=== PATIENT | female | born 1960 | race Caucasian/White ===

== ENCOUNTER 2016-09-16 20:16 | Emergency (ER) | payer OTHER ==
[~2016-09-16] VITALS: Ht 175.3 cm; Wt 70.3 kg
[~2016-09-16 20:16] MED LIST: ASPI81CH43 GT; CLOP75TA28; NORVASC PO; [UNRECOGNIZED DRUG - CODE] OR
[2016-09-16 20:45] VITALS: BP 199/119
[2016-09-16] MEDS ORDERED: cloNIDine HCL 0.1 MG TAB ONE (20:48)
[2016-09-16] MEDS ORDERED: cloNIDine HCL 0.1 MG TAB PO ONE (21:00)
[2016-09-16 21:25] LABS: Basophils # (auto) 0.1 uL; Basophils % (auto) 1.1 % (0.0-2.0); DEFINITIVE VIEW TRANSMISSION; Eosinophils # (auto) 0.4 uL; Lymphocytes # (auto) 2.8 uL; Mean Corpuscular Volume 72.1 fL (80.0-100.0); Monocytes % (auto) 11.3 % (0.0-12.0)
[2016-09-16 21:33] LABS: Eosinophils % (auto) 4.4 % (0.0-7.0); Hematocrit 39.2 % (36.0-46.0); Hemoglobin 12.5 g/dL (12.2-16.2); Lymphocytes % (auto) 32.8 % (10.0-50.0); Mean Platelet Volume 8.9 fL (7.4-10.4); Neutrophils # (auto) 4.3 uL; Neutrophils % (auto) 50.4 % (37.0-80.0); Nucleated Red Blood Cells % 2.8 %; Platelet Count (auto) 432 10^3/uL (140-450); White Blood Cell 8.5 10^3/uL (4.4-10.8)
[2016-09-16 21:38] LABS: Red Cell Distribution Width 20.2 % (11.6-16.0)
[2016-09-16 21:41] LABS: INR 0.93 (0.9-1.15); Partial Thromboplastin Time 25.2 sec (22.64-33.71); Prothrombin Time 9.6 sec (9.37-12.3)
[2016-09-16 21:48] LABS: Albumin 4.1 g/dL (3.4-5.0); BUN/Creatinine Ratio 18.1; Bilirubin, Total 0.3 mg/dL (0.2-1.0); Calcium 9.2 mg/dL (8.5-10.1); Magnesium 2.5 mg/dL (1.6-2.6); Total Protein 7.6 g/dL (6.4-8.2)
[2016-09-16 21:59] LABS: B-Type Natriuretic Peptide 797.9 pg/mL (0-100); Temperature: 23.5 C (20.0-25.0)
[2016-09-16 22:01] LABS: Anisocytosis Moderate; Platelet Estimate Adequate
[2016-09-16 22:02] LABS: Hypochromia Moderate; Large Platelets FEW; Ovalocytes MODERATE; Tear Drop Cells FEW
[2016-09-16] MEDS ORDERED: HYDROmorphone HCL 2 MG/ML VL IV ONE (23:30)
[2016-09-16] MEDS ORDERED: ONDANSETRON HCL 4 MG/2 ML VIAL IV ONE (23:30)
== END 2016-09-17 01:31 | disposition left against medical advice (07) ==
LOC: ER 20:24
DX: I11.0 Hypertensive heart disease with heart failure (principal); I50.9 Heart failure, unspecified; I25.810 Atherosclerosis of coronary artery bypass graft(s) without angina pectoris; I10 Essential (primary) hypertension; F41.9 Anxiety disorder, unspecified; E78.5 Hyperlipidemia, unspecified; I25.2 Old myocardial infarction; F17.210 Nicotine dependence, cigarettes, uncomplicated; Z88.2 Allergy status to sulfonamides; Z88.6 Allergy status to analgesic agent; Z88.1 Allergy status to other antibiotic agents; Z91.041 Radiographic dye allergy status; Z91.040 Latex allergy status; Z88.0 Allergy status to penicillin; Z91.013 Allergy to seafood; Z79.82 Long term (current) use of aspirin; Z90.710 Acquired absence of both cervix and uterus
CPT/HCPCS: 36415; 71010; 74176; 80053; 83735; 83880; 84443; 84484; 85025; 85610; 85730; 93005

== ENCOUNTER 2017-06-15 12:12 | Inpatient (IN) | payer OTHER, MEDICAID ==
[~2017-06-15] VITALS: Ht 162.6 cm; Wt 70.8 kg
[~2017-06-15 12:12] MED LIST changes: -ASPI81CH43 GT; +ASPI81CH43 PO; -[UNRECOGNIZED DRUG - CODE] OR
[2017-06-15] MEDS ORDERED: HYDROmorphone HCL 2 MG/ML VL IV ONE ×3 (13:30→18:30)
[2017-06-15] MEDS ORDERED: ONDANSETRON HCL 4 MG/2 ML VIAL IV ONE ×2 (13:30→16:00)
[2017-06-15 13:46] LABS: Basophils # (auto) 0.2 uL; Basophils % (auto) 2.5 % (0.0-2.0); Eosinophils # (auto) 0.3 uL; Eosinophils % (auto) 5.1 % (0.0-7.0); Hematocrit 43.2 % (36.0-46.0); Hemoglobin 14.5 g/dL (12.2-16.2); Lymphocytes # (auto) 1.5 uL; Lymphocytes % (auto) 22.8 % (10.0-50.0); Mean Corpuscular Hemoglobin 29.3 pg (28.0-32.0); Mean Corpuscular Hgb Conc. 33.5 g/dL (32.0-36.0); Mean Corpuscular Volume 87.4 fL (80.0-100.0); Mean Platelet Volume 7.9 fL (6.9-10.8); Monocytes # (auto) 0.5 uL; Monocytes % (auto) 7.2 % (0.0-12.0); Neutrophils # (auto) 4.2 uL; Neutrophils % (auto) 62.4 % (37.0-80.0); Nucleated Red Blood Cells % 0.1 %; Platelet Count (auto) 247 10^3/uL (140-450); Red Cell Distribution Width 15.8 % (11.8-14.3); White Blood Cell 6.7 10^3/uL (4.4-10.8)
[2017-06-15 13:59] LABS: INR 0.97 (0.9-1.15); Partial Thromboplastin Time 26.3 sec (22.64-33.71); Prothrombin Time 10.6 sec (9.37-12.3)
[2017-06-15 14:17] LABS: Urine Bilirubin Negative (Negative); Urine Blood 2+ /uL (Negative); Urine Color Yellow (Yellow); Urine Glucose 2+ mg/dL (Normal); Urine Ketone Negative (Negative); Urine Nitrite Negative (Negative); Urine RBC 40 /hpf (0 - 4); Urine Squamous Epithelial Cell FEW /hpf (<5); Urine Urobilinogen Normal (Negative); Urine pH 5.5 (5.0-8.0)
[2017-06-15 14:49] LABS: Potassium 3.7 mmol/L (3.5-5.1)
[2017-06-15 14:50] LABS: BUN/Creatinine Ratio 32.1
[2017-06-15 14:51] LABS: Bilirubin, Total 0.2 mg/dL (0.2-1.0); Total Protein 6.1 g/dL (6.4-8.2)
[2017-06-15] MEDS ORDERED: MORPHINE SULF INJ 2 MG/ML SYRINGE 1ML IV PRN ×2 (17:30)
[2017-06-15] MEDS ORDERED: NITROGLYCERIN 0.4 MG SL TAB SL PRN (17:30)
[2017-06-15] MEDS ORDERED: ACETAMINOPHEN 325 MG TAB PO PRN (17:30)
[2017-06-15] MEDS ORDERED: hydrALAZINE HCL 20 MG/ML VL IV PRN (17:30)
[2017-06-15] MEDS ORDERED: HYDROcodone-ACET 5/325MG TAB PO PRN (17:30)
[2017-06-15] MEDS: LEVOFLOXACIN 500MG 100 ML IV SCH (17:43)
[2017-06-15] MEDS ORDERED: NITROGLYCERIN 2% OINT 1GM PKG TD ONE (18:30)
[2017-06-15] MEDS: NITROGLYCERIN 2% OINT 1GM PKG TD SCH (18:48)
[2017-06-15 21:15] VITALS: BP 147/75
[2017-06-15] MEDS: METOPROLOL TARTRATE 25 MG TAB PO SCH (22:00)
[2017-06-15] MEDS: ENOXAPARIN SOD 80 MG/0.8ML SYRINGE SC SCH (22:03)
[2017-06-15 23:16] VITALS: BP 147/75
[2017-06-16] VITALS (7 sets, daily range): BP systolic 140–169; BP diastolic 66–96
[2017-06-16] MEDS: ONDANSETRON HCL 4 MG/2 ML VIAL IV PRN ×2 (00:41→20:02)
[2017-06-16] MEDS: HYDROmorphone HCL 2 MG/ML VL IV PRN ×4 (00:44→20:02)
[2017-06-16] MEDS: NITROGLYCERIN 2% OINT 1GM PKG TD SCH ×3 (05:24→17:03)
[2017-06-16 07:53] LABS: Basophils # (auto) 0.1 uL; Eosinophils # (auto) 0.1 uL; Eosinophils % (auto) 1.5 % (0.0-7.0); Hematocrit 42.6 % (36.0-46.0); Hemoglobin 13.9 g/dL (12.2-16.2); Lymphocytes # (auto) 1.3 uL; Lymphocytes % (auto) 17.4 % (10.0-50.0); Mean Corpuscular Hemoglobin 28.6 pg (28.0-32.0); Mean Corpuscular Hgb Conc. 32.7 g/dL (32.0-36.0); Mean Corpuscular Volume 87.3 fL (80.0-100.0); Monocytes # (auto) 0.6 uL; Monocytes % (auto) 8.2 % (0.0-12.0); Neutrophils # (auto) 5.6 uL; Neutrophils % (auto) 71.9 % (37.0-80.0); Nucleated Red Blood Cells % 0.1 %; Platelet Count (auto) 249 10^3/uL (140-450); Red Cell Distribution Width 15.5 % (11.8-14.3); White Blood Cell 7.8 10^3/uL (4.4-10.8)
[2017-06-16 08:03] LABS: Albumin 3.2 g/dL (3.4-5.0); BUN/Creatinine Ratio 27.8; Calcium 8.5 mg/dL (8.5-10.1); Potassium 3.5 mmol/L (3.5-5.1)
[2017-06-16 08:06] LABS: Bilirubin, Total 0.2 mg/dL (0.2-1.0); Total Protein 6.4 g/dL (6.4-8.2)
[2017-06-16] MEDS: ASPirin 81 mg TAB GT SCH (09:30)
[2017-06-16] MEDS: METOPROLOL TARTRATE 25 MG TAB PO SCH ×2 (09:31→22:16)
[2017-06-16] MEDS: ENOXAPARIN SOD 80 MG/0.8ML SYRINGE SC SCH ×2 (09:32→21:49)
[2017-06-16] MEDS: amLODIPine BESYLATE 5 MG TAB PO SCH (09:32)
[2017-06-16] MEDS: CLOPIDOGREL BISULFATE 75 MG TAB PO SCH (09:32)
[2017-06-16] MEDS: LEVOFLOXACIN 500MG 100 ML IV SCH (09:48)
[2017-06-17] MEDS: HYDROmorphone HCL 2 MG/ML VL IV PRN ×4 (00:50→20:28)
[2017-06-17 05:00] VITALS: BP 160/89
[2017-06-17] MEDS: ONDANSETRON HCL 4 MG/2 ML VIAL IV PRN (05:19)
[2017-06-17] MEDS: NITROGLYCERIN 2% OINT 1GM PKG TD SCH ×3 (06:00→17:32)
[2017-06-17 08:00] VITALS: BP 145/70
[2017-06-17 09:00] VITALS: BP 145/70
[2017-06-17] MEDS: ASPirin 81 mg TAB GT SCH (09:41)
[2017-06-17] MEDS: CLOPIDOGREL BISULFATE 75 MG TAB PO SCH (09:41)
[2017-06-17] MEDS: LEVOFLOXACIN 500MG 100 ML IV SCH (09:41)
[2017-06-17] MEDS: ENOXAPARIN SOD 80 MG/0.8ML SYRINGE SC SCH ×2 (09:42→22:56)
[2017-06-17] MEDS: METOPROLOL TARTRATE 25 MG TAB PO SCH ×2 (09:42→22:00)
[2017-06-17] MEDS: amLODIPine BESYLATE 5 MG TAB PO SCH (09:55)
[2017-06-17] MEDS ORDERED: IOHEXOL 350 MG/ML 100ML IJ ONE (11:31)
[2017-06-17] MEDS ORDERED: LIDOCAINE 2%HCL (LOCAL ANESTH.) INJ 20ML MDV ONE (11:32)
[2017-06-17] MEDS ORDERED: diphenhdrAMINE HCL 50 MG/1 ML VL ONE (12:10)
[2017-06-17] MEDS ORDERED: fentaNYL CITRATE 100 MCG/2 ML VL ONE (12:10)
[2017-06-17] MEDS ORDERED: methylPREDNISolone SOD SUCC 125 MG/2 ML VL ONE (12:10)
[2017-06-17] MEDS ORDERED: ANGIOMAX 250 MG VIAL IV ONE (12:11)
[2017-06-17] MEDS ORDERED: SODIUM CHL 0.9% 0 ML ONE (12:11)
[2017-06-17] MEDS ORDERED: MIDAZOLAM HCL 1MG/1ML-2 ML VIAL ONE (12:11)
[2017-06-17] MEDS ORDERED: cloNIDine HCL 0.1 MG TAB ONE (12:30)
[2017-06-17] MEDS ORDERED: hydrALAZINE HCL 20 MG/ML VL ONE (12:34)
[2017-06-17 13:00] VITALS: BP 103/52
[2017-06-17 17:14] VITALS: BP 117/60
[2017-06-17 22:00] VITALS: BP 124/68
[2017-06-18] MEDS: HYDROmorphone HCL 2 MG/ML VL IV PRN ×2 (02:15→11:47)
[2017-06-18 05:59] VITALS: BP 153/84
[2017-06-18] MEDS: NITROGLYCERIN 2% OINT 1GM PKG TD SCH ×2 (06:00→11:47)
[2017-06-18 09:00] VITALS: BP 150/85
[2017-06-18] MEDS: LEVOFLOXACIN 500MG 100 ML IV SCH (09:32)
[2017-06-18] MEDS: CLOPIDOGREL BISULFATE 75 MG TAB PO SCH (09:38)
[2017-06-18] MEDS: METOPROLOL TARTRATE 25 MG TAB PO SCH (09:39)
[2017-06-18] MEDS: ENOXAPARIN SOD 80 MG/0.8ML SYRINGE SC SCH (09:40)
[2017-06-18] MEDS: amLODIPine BESYLATE 5 MG TAB PO SCH (09:40)
[2017-06-18] MEDS: ASPirin 81 mg TAB GT SCH (09:41)
[2017-06-18] MEDS ORDERED: CLOP75TA28 PO (12:55)
[2017-06-18] MEDS ORDERED: MET25T PO (12:55)
[2017-06-18] MEDS ORDERED: ATOR20TA50 PO (12:55)
[2017-06-18 13:00] VITALS: BP 157/95
[2017-06-18 13:35] VITALS: BP 150/85
== END 2017-06-18 14:50 | disposition home or self-care (01) | DRG 286 ==
LOC: EDBD 12:12 → EDUNIT# 12:12 → ER 12:12 → TELE 12:13 → TELE-CENTR 21:10
PROVIDERS: ADMIT Internal Medicine; ATTEND Internal Medicine
PROC: 4A023N7 Measurement of Cardiac Sampling and Pressure, Left Heart, Percutaneous Approach (ICD-10-PCS; principal; 2017-06-17)
PROC: B2111ZZ Fluoroscopy of Multiple Coronary Arteries using Low Osmolar Contrast (ICD-10-PCS; 2017-06-17)
PROC: B2131ZZ Fluoroscopy of Multiple Coronary Artery Bypass Grafts using Low Osmolar Contrast (ICD-10-PCS; 2017-06-17)
PROC: B2151ZZ Fluoroscopy of Left Heart using Low Osmolar Contrast (ICD-10-PCS; 2017-06-17)
DX: I25.110 Atherosclerotic heart disease of native coronary artery with unstable angina pectoris (principal); I50.43 Acute on chronic combined systolic (congestive) and diastolic (congestive) heart failure; I25.709 Atherosclerosis of coronary artery bypass graft(s), unspecified, with unspecified angina pectoris; I42.9 Cardiomyopathy, unspecified; N39.0 Urinary tract infection, site not specified; E78.5 Hyperlipidemia, unspecified; I11.0 Hypertensive heart disease with heart failure; F41.9 Anxiety disorder, unspecified; I50.9 Heart failure, unspecified; Z82.49 Family history of ischemic heart disease and other diseases of the circulatory system; Z90.710 Acquired absence of both cervix and uterus; Z95.1 Presence of aortocoronary bypass graft; Z95.5 Presence of coronary angioplasty implant and graft; Z83.3 Family history of diabetes mellitus; I25.2 Old myocardial infarction; Z91.041 Radiographic dye allergy status; Z91.013 Allergy to seafood; Z88.0 Allergy status to penicillin; Z88.2 Allergy status to sulfonamides; Z88.8 Allergy status to other drugs, medicaments and biological substances; Z88.5 Allergy status to narcotic agent; Z79.82 Long term (current) use of aspirin
CPT/HCPCS: 36415; 71010; 80053; 81001; 83735; 83880; 84443; 84484; 85025; 85610; 85730; 86850; 86900; 86901; 87086; 93005; 93306; 93459; 94761; 96374; 96375; 96376; 99152; J1956; J2250; J2405

== ENCOUNTER 2018-02-15 08:34 | Inpatient (IN) | payer OTHER, MEDICAID ==
[~2018-02-15] VITALS: Ht 154.3 cm; Wt 82.5 kg
[~2018-02-15 08:34] MED LIST changes: +ATOR20TA50 PO; -CLOP75TA28; +CLOP75TA28 PO; +MET25T PO; -NORVASC PO
[2018-02-15] MEDS ORDERED: NALBUPHINE HCL 10 MG/1ml INJECTION IV ONE (09:30)
[2018-02-15] MEDS ORDERED: SODIUM CHLORIDE 0.9% 1,000 ML IV ONE (09:30)
[2018-02-15 09:54] LABS: Urine Bacteria FEW /hpf (None Seen); Urine Blood Negative /uL (Negative); Urine Specific Gravity 1.003 (1.001-1.035); Urine WBC <1 /hpf (0 - 5)
[2018-02-15] MEDS ORDERED: MEPERIDINE HCL (50 MG/ML) 1 ML VIAL IV ONE ×2 (10:00→14:30)
[2018-02-15] MEDS: PROMETHAZINE HCL 25 MG/ML 1ML IV PRN ×3 (10:16→20:33)
[2018-02-15 10:23] LABS: Basophils # (auto) 0.1 uL; Basophils % (auto) 1.3 % (0.0-2.0); Eosinophils # (auto) 0.3 uL; Eosinophils % (auto) 4.3 % (0.0-7.0); Hematocrit 47.7 % (36.0-46.0); Hemoglobin 16.3 g/dL (12.2-16.2); Lymphocytes # (auto) 1.5 uL; Lymphocytes % (auto) 22.9 % (10.0-50.0); Mean Corpuscular Hemoglobin 29.8 pg (28.0-32.0); Mean Corpuscular Hgb Conc. 34.1 g/dL (32.0-36.0); Mean Corpuscular Volume 87.4 fL (80.0-100.0); Monocytes # (auto) 0.7 uL; Monocytes % (auto) 11.2 % (0.0-12.0); Neutrophils % (auto) 60.3 % (37.0-80.0); Nucleated Red Blood Cells % 0.1 %; Platelet Count (auto) 280 10^3/uL (140-450); Red Blood Cells 5.46 10^6/uL (4.0-5.20); Red Cell Distribution Width 14.3 % (11.8-14.3); White Blood Cell 6.6 10^3/uL (4.4-10.8)
[2018-02-15 10:35] LABS: INR 0.9 (0.9-1.15); Prothrombin Time 9.7 sec (9.27-12.13)
[2018-02-15] MEDS ORDERED: LABETALOL HCL 5 MG/ML ML 20ML VIAL IV ONE (11:00)
[2018-02-15 11:09] LABS: Albumin 3.8 g/dL (3.4-5.0); BUN/Creatinine Ratio 23.5; Bilirubin, Total 0.3 mg/dL (0.2-1.0); Calcium 9.3 mg/dL (8.5-10.1); Magnesium 2.4 mg/dL (1.6-2.6); Potassium 3.7 mmol/L (3.5-5.1); Total Protein 7.4 g/dL (6.4-8.2)
[2018-02-15] MEDS ORDERED: hydrALAZINE HCL 20 MG/ML VL IV ONE (13:15)
[2018-02-15] MEDS ORDERED: METOCLOPRAMIDE HCL 5MG/ml INJ 2ml VIAL IV ONE (14:30)
[2018-02-15] MEDS ORDERED: LORazepam 0.5 MG TAB PO PRN (14:45)
[2018-02-15] MEDS ORDERED: LACTULOSE 20Gm/30ML SOLN PO PRN (14:45)
[2018-02-15] MEDS ORDERED: NITROGLYCERIN 0.4 MG SL TAB SL PRN (14:45)
[2018-02-15] MEDS ORDERED: ACETAMINOPHEN 500 MG TAB PO PRN (14:45)
[2018-02-15] MEDS ORDERED: TEMAZEPAM 15 MG CAP PO PRN (14:45)
[2018-02-15] MEDS ORDERED: HYDROcodone-ACET 5/325MG TAB PO PRN (14:45)
[2018-02-15] MEDS: SODIUM CHLORIDE 0.9% 1,000 ML IV SCH (15:40)
[2018-02-15] MEDS ORDERED: ENALAPRIL MALEATE 2.5 MG TAB PO SCH (16:02)
[2018-02-15] MEDS ORDERED: CLOPIDOGREL BISULFATE 75 MG TAB PO ONE (16:15)
[2018-02-15] MEDS ORDERED: ASPirin 81 mg TAB PO ONE (16:15)
[2018-02-15] MEDS ORDERED: NITROGLYCERIN 0.2MG/HR TOPICAL PATCH TD SCH (17:20)
[2018-02-15] MEDS ORDERED: EPINEPHrine HCL 1 MG/10 ML SYRG IV ONE (20:02)
[2018-02-15] MEDS ORDERED: SODIUM BICARBONATE 8.4% INJ 50ML SYRINGE IV ONE (20:02)
[2018-02-15 20:07] VITALS: BP 157/90
[2018-02-15 20:40] LABS: Alcohol, Urine < 3.0 mg/dL (0-5); Amphetamine Screen, Urine NEGATIVE (NEGATIVE); Barbiturate Scree,Urine NEGATIVE (NEGATIVE); Benzodiazephine Screen, Urine NEGATIVE (NEGATIVE); Cannabinoid Screen, Urine NEGATIVE (NEGATIVE); Cocaine Screen, Urine NEGATIVE (NEGATIVE); Opiate Scree,Urine NEGATIVE (NEGATIVE); Phencyclidine Screen, Urine NEGATIVE (NEGATIVE)
[2018-02-15 22:00] VITALS: BP 170/77
[2018-02-15] MEDS ORDERED: MEPERIDINE HCL (25 MG/ML) 1ML VIAL IV ONE (22:15)
[2018-02-15] MEDS: ATORVASTATIN 20 MG TAB PO SCH (22:50)
[2018-02-15] MEDS: PANTOPRAZOLE 40 MG TAB PO SCH (22:50)
[2018-02-15] MEDS: METOPROLOL TARTRATE 25 MG TAB PO SCH (22:51)
[2018-02-16] VITALS (7 sets, daily range): BP systolic 146–177; BP diastolic 78–105
[2018-02-16] MEDS: SODIUM CHLORIDE 0.9% 1,000 ML IV SCH ×2 (03:26→12:08)
[2018-02-16] MEDS: PROMETHAZINE HCL 25 MG/ML 1ML IV PRN ×4 (03:29→20:52)
[2018-02-16 08:00] LABS: Albumin 3.3 g/dL (3.4-5.0); BUN/Creatinine Ratio 23.2; Bilirubin, Total 0.4 mg/dL (0.2-1.0); Calcium 8.9 mg/dL (8.5-10.1); Magnesium 2.8 mg/dL (1.6-2.6); Potassium 4.2 mmol/L (3.5-5.1); Total Protein 6.6 g/dL (6.4-8.2)
[2018-02-16] MEDS ORDERED: ADENOSINE 61 MG in GIVE UN-DILUTED 0 ML IV ONE (09:00)
[2018-02-16] MEDS ORDERED: PANTOPRAZOLE 40 MG TAB PO SCH (10:00)
[2018-02-16] MEDS ORDERED: CLOPIDOGREL BISULFATE 75 MG TAB PO SCH (10:00)
[2018-02-16] MEDS ORDERED: amLODIPine BESYLATE 5 MG TAB PO ONE (12:00)
[2018-02-16] MEDS: MEPERIDINE HCL (25 MG/ML) 1ML VIAL IV PRN ×3 (12:07→20:51)
[2018-02-16] MEDS: METOPROLOL TARTRATE 25 MG TAB PO SCH ×2 (12:09→22:00)
[2018-02-16] MEDS: ASPirin 81 mg TAB PO SCH (12:09)
[2018-02-16] MEDS: PANTOPRAZOLE 40 MG TAB PO SCH ×2 (12:09→22:10)
[2018-02-16] MEDS: ATORVASTATIN 20 MG TAB PO SCH (22:10)
[2018-02-17] MEDS: SODIUM CHLORIDE 0.9% 1,000 ML IV SCH ×2 (01:20→16:53)
[2018-02-17] MEDS: MEPERIDINE HCL (25 MG/ML) 1ML VIAL IV PRN ×4 (02:38→13:49)
[2018-02-17] MEDS: PROMETHAZINE HCL 25 MG/ML 1ML IV PRN ×4 (02:40→13:50)
[2018-02-17 04:58] VITALS: BP 147/72
[2018-02-17 08:00] VITALS: BP 161/67
[2018-02-17] MEDS ORDERED: SODIUM CHLORIDE LOCK 10 ML ONE (08:24)
[2018-02-17] MEDS ORDERED: LIDOCAINE VISCOUS 2% 15ML UD ONE (08:24)
[2018-02-17] MEDS ORDERED: MIDAZOLAM HCL 5 MG/ML-1ML VIAL ONE (08:24)
[2018-02-17] MEDS ORDERED: diphenhdrAMINE HCL 50 MG/1 ML VL ONE (08:24)
[2018-02-17] MEDS ORDERED: fentaNYL CITRATE 100 MCG/2 ML VL ONE (08:24)
[2018-02-17 09:12] VITALS: BP 161/67
[2018-02-17] MEDS: ASPirin 81 mg TAB PO SCH (09:36)
[2018-02-17] MEDS: PANTOPRAZOLE 40 MG TAB PO SCH (09:36)
[2018-02-17] MEDS: METOPROLOL TARTRATE 25 MG TAB PO SCH (09:37)
[2018-02-17 10:00] VITALS: BP 174/102
[2018-02-17] MEDS ORDERED: amLODIPine BESYLATE 5 MG TAB PO SCH (10:00)
[2018-02-17 13:00] VITALS: BP 165/88
[2018-02-17] MEDS ORDERED: cloNIDine HCL 0.1 MG TAB PO ONE (13:15)
[2018-02-17 17:00] VITALS: BP 139/74
== END 2018-02-17 18:14 | disposition home or self-care (01) | DRG 445 ==
LOC: ER 08:34 → TELE 08:35 → TELE-CENTR 20:07
PROVIDERS: ADMIT Internal Medicine; ATTEND Internal Medicine
PROC: 0DB68ZX Excision of Stomach, Via Natural or Artificial Opening Endoscopic, Diagnostic (ICD-10-PCS; principal; 2018-02-17 11:25)
DX: K80.20 Calculus of gallbladder without cholecystitis without obstruction (principal); I24.9 Acute ischemic heart disease, unspecified; I50.42 Chronic combined systolic (congestive) and diastolic (congestive) heart failure; I25.10 Atherosclerotic heart disease of native coronary artery without angina pectoris; N20.0 Calculus of kidney; Z95.5 Presence of coronary angioplasty implant and graft; E78.5 Hyperlipidemia, unspecified; I11.0 Hypertensive heart disease with heart failure; I25.2 Old myocardial infarction; I70.8 Atherosclerosis of other arteries; K25.9 Gastric ulcer, unspecified as acute or chronic, without hemorrhage or perforation; K29.70 Gastritis, unspecified, without bleeding; K29.80 Duodenitis without bleeding; K57.30 Diverticulosis of large intestine without perforation or abscess without bleeding; Z82.49 Family history of ischemic heart disease and other diseases of the circulatory system; Z83.3 Family history of diabetes mellitus; Z90.710 Acquired absence of both cervix and uterus; Z95.1 Presence of aortocoronary bypass graft; F41.9 Anxiety disorder, unspecified; M19.90 Unspecified osteoarthritis, unspecified site; Z80.9 Family history of malignant neoplasm, unspecified; Z88.8 Allergy status to other drugs, medicaments and biological substances; Z91.041 Radiographic dye allergy status; Z91.013 Allergy to seafood; Z85.89 Personal history of malignant neoplasm of other organs and systems; Z88.6 Allergy status to analgesic agent; Z88.0 Allergy status to penicillin; Z88.2 Allergy status to sulfonamides
CPT/HCPCS: 36415; 43239; 71046; 74176; 76705; 78452; 80053; 80307; 81001; 82150; 82378; 82550; 83690; 83735; 83880; 84443; 84484; 85025; 85379; 85610; 85652; 85730; 86850; 86900; 86901; 93005; 93017; 94761; 96374; 96375; 96376; A6257; J0153; J2250

== ENCOUNTER 2018-11-01 00:39 | Emergency (ER) | payer OTHER ==
[~2018-11-01] VITALS: Ht 175.3 cm; Wt 72.6 kg
[~2018-11-01 00:39] MED LIST changes: -ATOR20TA50 PO; -CLOP75TA28 PO; -MET25T PO
[2018-11-01] MEDS ORDERED: cloNIDine HCL 0.1 MG TAB ONE (01:07)
[2018-11-01] MEDS ORDERED: cloNIDine HCL 0.1 MG TAB PO ONE (01:15)
[2018-11-01 02:12] LABS: Basophils # (auto) 0.1 uL; Basophils % (auto) 0.7 % (0.0-2.0); Eosinophils # (auto) 0.2 uL; Eosinophils % (auto) 1.9 % (0.0-7.0); Hematocrit 41.5 % (36.0-46.0); Hemoglobin 13.8 g/dL (12.2-16.2); Lymphocytes # (auto) 2.7 uL; Lymphocytes % (auto) 23.1 % (10.0-50.0); Mean Corpuscular Hemoglobin 28.8 pg (28.0-32.0); Mean Corpuscular Hgb Conc. 33.1 g/dL (32.0-36.0); Monocytes # (auto) 1.3 uL; Monocytes % (auto) 11.1 % (0.0-12.0); Neutrophils # (auto) 7.4 uL; Neutrophils % (auto) 63.2 % (37.0-80.0); Platelet Count (auto) 237 10^3/uL (140-450); Red Blood Cells 4.78 10^6/uL (4.0-5.20); Red Cell Distribution Width 13.8 % (11.8-14.3); White Blood Cell 11.7 10^3/uL (4.4-10.8)
[2018-11-01 02:29] LABS: Albumin 3.2 g/dL (3.4-5.0); Calcium 8.6 mg/dL (8.5-10.1); Magnesium 2.2 mg/dL (1.6-2.6); Potassium 3.7 mmol/L (3.5-5.1)
[2018-11-01 02:34] LABS: Bilirubin, Total 0.3 mg/dL (0.2-1.0); Total Protein 6.9 g/dL (6.4-8.2)
[2018-11-01 03:17] VITALS: BP 154/86
[2018-11-01] MEDS ORDERED: NITROGLYCERIN 0.4 MG SL TAB SL PRN (03:30)
== END 2018-11-01 04:10 | disposition left against medical advice (07) ==
LOC: ER 00:41
DX: I21.4 Non-ST elevation (NSTEMI) myocardial infarction (principal); G89.4 Chronic pain syndrome; F41.9 Anxiety disorder, unspecified; I25.810 Atherosclerosis of coronary artery bypass graft(s) without angina pectoris; I11.0 Hypertensive heart disease with heart failure; I50.9 Heart failure, unspecified; E78.00 Pure hypercholesterolemia, unspecified; I25.2 Old myocardial infarction; Z98.61 Coronary angioplasty status; Z53.29 Procedure and treatment not carried out because of patient's decision for other reasons
CPT/HCPCS: 36415; 71045; 80053; 83735; 84484; 85025; 85379; 93005